=== PATIENT | female | born 1980 | race Caucasian/White ===

== ENCOUNTER 2020-01-29 09:53 | Day surgery (SDC) | payer BC ==
[~2020-01-29] VITALS: Ht 170.2 cm; Wt 70.3 kg
[~2020-01-29 09:53] MED LIST: ACYCLOVIR400 MG PO; PRENATAL VITAM1 EACH PO; VENTOLIN HFA18 GM
--- NOTE | 2020-01-29 11:59 | NUR ---
01/29/20 Floyd9 Rosie Mack 1155 PATIENT ARRIVES TO PACU RESTING WITH EYES CLOSED, OPENS EYES WITH VERBAL STIMULI, DOES NOT ANSWER QUESTIONS, THEN BACK TO SLEEP. RESP EVEN AND UNLABORED, ROOM AIR SATS >97%.
--- NOTE | 2020-01-29 15:43 | OR ---
[facility] [address] [place], [place] [address] Signed DATE OF OPERATION: 01/29/2020 SURGEON: Rell Pierce MD PREOPERATIVE DIAGNOSIS: Left forehead skin lesion (4 mm). POSTOPERATIVE DIAGNOSIS: Left forehead skin lesion (4 mm). PROCEDURES PERFORMED: Excision of left forehead skin lesion. ESTIMATED BLOOD LOSS: None. INDICATIONS: Gerry is a 39-year-old female, who wanted to come the office to have me look at 2 skin lesions. The one over the left forehead is about 4 mm in diameter, it is raised up 2 or 3 mm. It has a chasity color and there was concern that could be a basal cell carcinoma. She had a smaller lesion over the right scapula area and she decided she wants to wait on that one. I explained to Mustapha that the skin lesion on the left forehead was just large enough it might require skin flaps and therefore we wanted to do it over in the operating room rather than under straight local. She and her have one child and they are working on a 2nd. She unfortunately lost her here about 3 weeks ago. She had been to her cpas and had a transvaginal ultrasound in the office. There was no retained tissue in the uterus. She went through multiple days of evacuation. She and her have not had any unprotected sex since then. After having a long discussion with Mustapha, she decided she wanted to proceed with excision of the skin lesion. We decided we would use monitored anesthesia care with propofol and fentanyl and local anesthetic to give her the safest anesthetic. She understands there is risk to the surgery including, but not limited to bleeding, infection, scarring, change in contour of the skin as well as possible need for additional surgery based on pathology results. She had expressed understanding and wished to proceed. DESCRIPTION OF PROCEDURE: I met with Mustapha in our preop area. We had reviewed the above findings. We then marked the skin lesion appropriately. She was taken in the operating room and placed in the supine position under monitored anesthesia care with fentanyl and propofol. She was prepped and draped in the usual sterile fashion. She was given preoperative Electronically Signed By: RELL PIERCE MD 01/29/20 1543 PATIENT NAME: MUSTAPHA PINEDA OPERATIVE REPORT DATE OF : 82 REPORT #: [id number] PHYSICIAN: RELL PIERCE MD PCP: NO PRIMARY CARE PHYSICIAN REPORT IS CONFIDENTIAL AND NOT TO BE RELEASED WITHOUT AUTHORIZATION [facility] [address] [place], [place] [address] Signed subcutaneous heparin along with SCDs. We also gave her Ancef preoperatively. We then injected local anesthetic in and around underneath the skin lesion along the left forehead on the edge of the hairline. We used an elliptical incision to remove the lesion full thickness. We were able to bring the skin edges back together with interrupted 5-0 subcuticular Monocryl sutures. We then brought the skin edges together with a running 5-0 fast absorbing plain gut suture. A simple dry gauze and tape were applied. Mustapha was then transferred from her OR bed to the hospital bed and taken into recovery room in stable condition. Rell Pierce MD ALB/MODL /[id number] cc: MD Marixa Rivera MD Copies: RELL PIERCE MD, PATRICIA J MD ~ Electronically Signed By: RELL PIERCE MD 01/29/20 1543 PATIENT NAME: MUSTAPHA PINEDA OPERATIVE REPORT DATE OF : 82 REPORT #: [id number] PHYSICIAN: RELL PIERCE MD PCP: NO PRIMARY CARE PHYSICIAN REPORT IS CONFIDENTIAL AND NOT TO BE RELEASED WITHOUT AUTHORIZATION
--- NOTE | 2020-02-01 10:40 | PATH ---
[facility] [place] [facility] [address] [place], [place] [address] Signed SPECIMEN(S): A LEFT FOREHEAD SPECIMEN SOURCE: A. LEFT FOREHEAD CLINICAL HISTORY: Left forehead lesion. FINAL PATHOLOGIC DIAGNOSIS: Skin, left forehead, excision: - Intradermal nevus with congenital features, irritated; present at peripheral excision margin. NAL:cml:C2NR MICROSCOPIC EXAMINATION: Histologic sections of all submitted blocks are examined by light microscopy. These findings, together with the gross examination, support the pathologic diagnosis. GROSS DESCRIPTION: The specimen, labeled "JE," and designated on the requisition "left forehead lesion," is received in formalin and consists of an unoriented ellipse of skin (1.3 cm in length x 0.6 cm in width and excised to a depth of 0.5 cm) with a pink-duarte, bosselated lesion on the epidermal surface (0.6 x 0.5 cm). The resection margin is inked blue. The specimen is serially sectioned to reveal a pink-duarte cut surface. The specimen is submitted entirely in cassette (A1). AC (under the direct supervision of a pathologist) The Gross Description was prepared using a voice recognition system. The report was reviewed for accuracy; however, sound-alike word errors, addition and/or deletions may occur. If there is any question about this report, please contact Client Services. PERFORMING LABORATORY: The technical component was performed by [employer], [address] [place] [address] (Wafer Abrading Machine Tender: Tessy Gauthier MD; CLIA# [id number]). [facility], [address] [address] (CLIA# [id number]). Diagnostician: Leonor Almeida MD PATIENT NAME: MUSTAPHA PINEDA PATHOLOGY DATE OF : 82 REPORT #: [id number] PHYSICIAN: [facility] PCP: NO PRIMARY CARE PHYSICIAN REPORT IS CONFIDENTIAL AND NOT TO BE RELEASED WITHOUT AUTHORIZATION [address] [place] [address] Signed Pathologist Electronically Signed 02/01/2020 Copies: ~ PATIENT NAME: MUSTAPHA PINEDA PATHOLOGY DATE OF : 82 REPORT #: [id number] PHYSICIAN: [facility] PCP: NO PRIMARY CARE PHYSICIAN REPORT IS CONFIDENTIAL AND NOT TO BE RELEASED WITHOUT AUTHORIZATION
== END 2020-01-29 12:45 | disposition home or self-care (01) ==
LOC: DS 09:53
PROVIDERS: Colon & Rectal Surgery
PROC: 0HB1XZZ Excision of Face Skin, External Approach (ICD-10-PCS; principal; 2020-01-29 11:30)
DX: D22.39 Melanocytic nevi of other parts of face (principal)
CPT/HCPCS: 00300; J0690; J1100; J1644; J1885; J2001; J2405; J2704; J3010; J7121

== ENCOUNTER 2020-11-01 09:15 | Inpatient (IN) | payer BC ==
--- NOTE | ~2020-11-01 | OR ---
[facility] [address] [place], [place] [address] Draft DATE OF OPERATION: 11/02/2020 SURGEON: Marixa Darby MD PARTS PROCESSOR: Slava Sinclair MD PREOPERATIVE DIAGNOSIS: Term , previous section. POSTOPERATIVE DIAGNOSES: 1. Term , previous section. 2. Delivered. PROCEDURE: Repeat section with low segment transverse uterine incision. ANESTHESIA: Spinal. ESTIMATED BLOOD LOSS: 600 mL. DRAINS: Lux catheter. INDICATIONS AND FINDINGS: The patient is a 40-year-old female, 4, para 1, SAB 2, who was admitted at 39 weeks for repeat section. Her has been uncomplicated. At the time of surgery, she was delivered of a little girl via lower segment transverse uterine incision from the ROT position with Apgars of 9 and 9 and weight of 6 pounds 8 ounces. Uterus, tubes, ovaries, placenta appeared normal. DESCRIPTION OF PROCEDURE: The patient was prepped and draped in the supine position. Her previous scar was keloid and was excised sharply with a knife and the incision carried down through the fascia. The incision was extended laterally. The inferior and superior flaps were then created. The muscles were bluntly divided. The peritoneum entered bluntly and the incision extended superiorly and inferiorly. The Jamie retractor was then placed. The uterine incision was made at the upper aspect of the peritoneal reflection and the baby PATIENT NAME: MUSTAPHA PINEDA OPERATIVE REPORT DATE OF : 82 REPORT #: [id number] PHYSICIAN: MARIXA DARBY MD PCP: NO PRIMARY CARE PHYSICIAN REPORT IS CONFIDENTIAL AND NOT TO BE RELEASED WITHOUT AUTHORIZATION [facility] [address] [place], [place] [address] Draft delivered with the above findings and handed off to the pediatric staff in attendance. The placenta was removed manually and the uterus explored with a lap tape assuring no remaining fragments. The edges of the incision were identified. The uterus was closed in 2 layers using 0 Monocryl. The first layer was a running locking stitch and the second was a vertical imbricating stitch. An additional ifupyj-xo-swoio was required in the midportion for control of bleeding. The abdomen was then copiously irrigated and inspected and the incision was hemostatic. The retractor was removed and the peritoneum identified. An ACell graft was then laid over the lower segment to aid in healing. The peritoneum was closed in a running suture of 3-0 Vicryl. The muscles were brought together with an interrupted suture of 0 Vicryl. Bleeding points were controlled with cautery. A zeassc-hv-ayfci suture was required near the left upper fascial area for control of perforated bleeding. This area was then irrigated and inspected and good hemostasis was noted. ACell powder was sprinkled over the muscles to aid in healing. The fascia was then closed from each angle to the midline with a running suture of 0 Vicryl. The subcu tissue was irrigated and inspected and bleeding points controlled with cautery. The subcu space was brought together with interrupted sutures of 3-0 Vicryl. The skin incision was closed with a subcuticular suture of 4-0 Vicryl Rapide. This was followed by Mastisol and Steri-Strips. Following this, Cordran tape was laid over the incision to help prevent keloid formation. All sponge and needle counts were correct. She was taken to the recovery room in good condition. MD LUCRECIA Davis/MODL /[id number] cc: Slava Sinclair MD Copies: SLAVA SINCLAIR MD ~ PATIENT NAME: MUSTAPHA PINEDA OPERATIVE REPORT DATE OF : 82 REPORT #: [id number] PHYSICIAN: MARIXA DARBY MD PCP: NO PRIMARY CARE PHYSICIAN REPORT IS CONFIDENTIAL AND NOT TO BE RELEASED WITHOUT AUTHORIZATION
--- NOTE | 2020-11-02 10:56 | NUR ---
11/02/20 1055 Rosemarie Suggs 1045-PATIENT ARRIVED BACK TO ROOM 106 FOR RECOVERY. PATIENT AWAKE DENIES PAIN OR NAUSEA. REPORTS "EYES HEAVY" PATIENT UNABLE TO WIGGLE TOES. IVF INFUSING LR WITH 20 PITOCIN INTO RIGHT HAND CDI. FUNDUS MASSAGED AND FIRM LIGHT RUBRA DRAINAGE ON MENDEZ PAD. DRESSING CDI TO ABDOMEN. AT BEDSIDE
--- NOTE | 2020-11-03 08:30 | PR ---
[facility] [address] [facility] [place], [place] [address] Signed PP Progress Notes Datetime Report Generated by CPN: 11/03/2020 08:29 SUBJECTIVE: [id number] Pain: Within Normal Limits Nausea/Vomiting: Denies Flatus: No Vital Signs: [id number] Vital Signs: Reviewed; Within Normal Limits EXAM: Ongoing Cardiovascular: Normal Respiratory: Normal Abdomen/Uterus: Abnormal Lochia: Normal Vulva/Perineum: Not Done Breasts: Not Done CVA Tenderness: Not Done Extremities: Normal Incision: Normal Progress: Normal Exam Comments: Abdomen with active BS. Fundus firm, NT @ U-2. H/H 11.6/34.3, WBC 17, plat 225k IMPRESSION/PLAN/PROCEDURES: [id number] Impression: Normal Progression Other Plans: ambulate, shower Progress Notes: Doing well. Will increase activity today. Signing Physician: Marixa Darby MD Copies: ~ *Electronically Signed* 11/03/20828 MARIXA DARBY MD PATIENT NAME: MUSTAPHA PINEDA PROGRESS NOTE DATE OF : 82 PHYSICIAN: MARIXA DARBY MD RPT #: [id number] REPORT IS CONFIDENTIAL AND NOT TO BE RELEASED WITHOUT AUTHORIZATION
--- NOTE | 2020-11-04 08:54 | PR ---
[facility] [address] [facility] [place], [place] [address] Signed PP Progress Notes Datetime Report Generated by CPN: 11/04/2020 08:54 SUBJECTIVE: [id number] Pain: Within Normal Limits Nausea/Vomiting: Denies Flatus: Yes Vital Signs: [id number] Vital Signs: Reviewed; Within Normal Limits EXAM: Ongoing Cardiovascular: Normal Respiratory: Normal Abdomen/Uterus: Abnormal Lochia: Normal Vulva/Perineum: Not Done Breasts: Not Done CVA Tenderness: Not Done Extremities: Normal Incision: Normal Progress: Normal Exam Comments: Abdomen with active BS. Fundus firm, NT @ U-2. IMPRESSION/PLAN/PROCEDURES: [id number] Impression: Normal Progression Plan: Discharge Other Plans: ambulate, shower Procedures: None Progress Notes: Doing well. She is ready for D/C. Signing Physician: Marixa Darby MD Copies: ~ *Electronically Signed* 11/04/20 0854 MARIXA DARBY MD PATIENT NAME: MUSTAPHA PINEDA PROGRESS NOTE DATE OF : 82 PHYSICIAN: MARIXA DARBY MD RPT #: [id number] REPORT IS CONFIDENTIAL AND NOT TO BE RELEASED WITHOUT AUTHORIZATION
== END 2020-11-04 11:35 | disposition home or self-care (01) | DRG 787 ==
LOC: FBC 11-02 06:58
PROVIDERS: ADMIT Obstetrics & Gynecology; ATTEND Obstetrics & Gynecology
PROC: 3E0T33Z Introduction of Anti-inflammatory into Peripheral Nerves and Plexi, Percutaneous Approach (ICD-10-PCS; 2020-11-02)
PROC: 3E0T3BZ Introduction of Anesthetic Agent into Peripheral Nerves and Plexi, Percutaneous Approach (ICD-10-PCS; 2020-11-02)
PROC: 10D00Z1 Extraction of Products of Conception, Low, Open Approach (ICD-10-PCS; principal; 2020-11-02 08:40)
DX: O34.211 Maternal care for low transverse scar from previous cesarean delivery (principal); O98.32 Other infections with a predominantly sexual mode of transmission complicating childbirth; N85.8 Other specified noninflammatory disorders of uterus; Z37.0 Single live birth; Z3A.39 39 weeks gestation of pregnancy; O32.2XX0 Maternal care for transverse and oblique lie, not applicable or unspecified; G89.18 Other acute postprocedural pain; O69.81X0 Labor and delivery complicated by cord around neck, without compression, not applicable or unspecified; A60.09 Herpesviral infection of other urogenital tract
CPT/HCPCS: 36415; 76942; 85027; 86850; 86900; 86901; A9270; J0690; J1100; J2001; J2274; J2370; J2405; J2590; J2795; J3010; J7120; J7121